=== PATIENT | female | born 1985 | race African-American/Black ===

== ENCOUNTER 2017-05-03 11:28 | Observation (INO) | payer SELFPAY ==
[2017-05-03] MEDS: IV RINGERS,LACTATED 1000ML 1,000 ML IV ×4 (00:30→19:20)
[2017-05-03] MEDS ORDERED: IV RINGERS,LACTATED 1000ML 1,000 ML IV ×2 (12:29→13:45)
[2017-05-03 12:47] LABS: BILIRUBIN,URINE SMALL (NEG); COLOR,URINE AMBER; GLUCOSE,URINE NEGATIVE (NEG); NITRITE,URINE POSITIVE (NEG); PROTEIN,URINE 30 mg/dL (NEG-TRACE)
[2017-05-03 13:05] LABS: BACTERIA,URINE MANY /HPF (0-FEW); CLARITY,URINE HAZY; SQUAMOUS EPITHELIAL CELL,UR MANY /LPF
[2017-05-03 13:06] LABS: WBC,URINE 20-40 /HPF (0-4)
[2017-05-03] MEDS ORDERED: 0.9 % SODIUM CHLORIDE 10 ML DISP.SYRIN. IV (13:30)
[2017-05-03] MEDS ORDERED: PIPERACILLIN/TAZOBACTAM 3.375 GM in IV DEXTROSE 5% 50 ML IV (14:00)
[2017-05-03 14:08] LABS: BARBITURATES NEG (NEG); BENZODIAZEPINES NEG (NEG); CANNABINOIDS POS (NEG); COCAINE NEG (NEG); METHADONE NEG (NEG); OPIATES NEG (NEG); PHENCYCLIDINE NEG (NEG)
[2017-05-03 14:12] LABS: AMPHETAMINE/METHAMPHETAMINE NEG (NEG); ETHANOL, URINE NEG (NEG)
[2017-05-03 14:24] LABS: ADD MAN DIFF? NO
[2017-05-03 14:29] LABS: BASO % 0 % (0-3); EOS # 0.1 x10^3/uL (0.0-0.7); EOS % 2 % (0-3); HEMATOCRIT 34.3 % (36.0-47.0); HEMOGLOBIN 11.1 g/dL (12.0-15.5); LYMPH # 1.1 x10^3/uL (1.0-4.8); LYMPH % 19 % (24-48); MEAN CORPUSCULAR HEMOGLOBIN 30 pg (25-35); MEAN CORPUSCULAR HGB CONC 32 g/dL (31-37); MEAN CORPUSCULAR VOLUME 91 fL (79-100); MONO # 0.2 x10^3/uL (0.0-1.1); MONO % 4 % (0-9); NEUT # 4.4 x10^3uL (1.8-7.7); NEUT % 75 % (31-73); PLATELET COUNT 117 x10^3/uL (140-400); RED BLOOD COUNT 3.76 x10^6/uL (3.50-5.40); RED CELL DISTRIBUTION WIDTH 13.6 % (11.5-14.5); WHITE BLOOD COUNT 5.9 x10^3/uL (4.0-11.0)
[2017-05-03 14:53] LABS: ALBUMIN 2.7 g/dL (3.4-5.0); ALBUMIN/GLOBULIN RATIO 0.7 (1.0-1.7); ALK PHOS 86 U/L (46-116); ALT (SGPT) 41 U/L (14-59); ANION GAP 11 (6-14); AST (SGOT) 36 U/L (15-37); BLOOD UREA NITROGEN 8 mg/dL (7-20); BUN/CREATININE RATIO 13 (6-20); CALCIUM 8.6 mg/dL (8.5-10.1); CARBON DIOXIDE 25 mmol/L (21-32); CHLORIDE 102 mmol/L (98-107); CREATININE 0.6 mg/dL (0.6-1.0); GFR 139.3; GLUCOSE 104 mg/dL (70-99); POTASSIUM 3.6 mmol/L (3.5-5.1); SODIUM 138 mmol/L (136-145); TOTAL BILIRUBIN 0.3 mg/dL (0.2-1.0); TOTAL PROTEIN 6.6 g/dL (6.4-8.2)
[2017-05-03 15:06] LABS: THYROID STIM HORMONE (TSH) 0.823 uIU/mL (0.358-3.74)
[2017-05-03] MEDS: PIPERACILLIN/TAZO IV Push 3.375 GM VIAL. IVP ×2 (15:08→21:10)
[2017-05-03 15:35] LABS: SICKLE CELL SCREEN NEGATIVE
[2017-05-03 15:40] LABS: PLT ESTIMATE DECREASED (ADEQUATE)
[2017-05-03 15:41] LABS: ANISOCYTOSIS SLIGHT; OVALOCYTES OCC
[2017-05-04] MEDS: PIPERACILLIN/TAZO IV Push 3.375 GM VIAL. IVP ×3 (03:00→15:00)
[2017-05-04 03:12] LABS: HEMOGLOBIN A1C 4.9 % (4.8-5.6)
[2017-05-04 06:14] LABS: RPR Non Reactive (Non Reactive)
[2017-05-04 14:22] LABS: HEP B SURFACE AG Negative (Negative); HIV ANTIBODY Non Reactive (Non Reactive)
[2017-05-04 15:19] LABS: RUBELLA IGG ANTIBODY 2.69 index (Immune >0.99)
== END 2017-05-04 17:08 | disposition home or self-care (01) ==
LOC: 3 SO LND 11:28
DX: O26.892 Other specified pregnancy related conditions, second trimester (principal); K46.9 Unspecified abdominal hernia without obstruction or gangrene; N23 Unspecified renal colic; Z3A.21 21 weeks gestation of pregnancy
CPT/HCPCS: 36415; 76805; 76817; 80053; 80307; 81001; 83036; 84443; 85025; 85660; 86593; 86703; 86762; 86850; 86900; 86901; 87086; 87186; 87340; 87491; 87591; 96360; 96361; 96374; 96376; G0378; G0379; J2543; J7120

== ENCOUNTER 2017-05-30 11:08 | Observation (INO) | payer OTHER ==
[2017-05-30 13:21] LABS: ADD MAN DIFF? NO
[2017-05-30 13:23] LABS: BASO # 0.1 x10^3/uL (0.0-0.2); BASO % 1 % (0-3); EOS % 1 % (0-3); HEMATOCRIT 33.9 % (36.0-47.0); HEMOGLOBIN 11.3 g/dL (12.0-15.5); LYMPH % 12 % (24-48); MEAN CORPUSCULAR HEMOGLOBIN 30 pg (25-35); MEAN CORPUSCULAR HGB CONC 33 g/dL (31-37); MEAN CORPUSCULAR VOLUME 91 fL (79-100); MONO # 0.4 x10^3/uL (0.0-1.1); MONO % 5 % (0-9); NEUT # 6.9 x10^3uL (1.8-7.7); NEUT % 82 % (31-73); RED BLOOD COUNT 3.74 x10^6/uL (3.50-5.40); RED CELL DISTRIBUTION WIDTH 14.4 % (11.5-14.5); WHITE BLOOD COUNT 8.5 x10^3/uL (4.0-11.0)
[2017-05-30 13:24] LABS: BILIRUBIN,URINE NEGATIVE (NEG); CLARITY,URINE CLEAR; COLOR,URINE AMBER; GLUCOSE,URINE NEGATIVE (NEG); NITRITE,URINE POSITIVE (NEG); PROTEIN,URINE NEGATIVE (NEG-TRACE)
[2017-05-30 13:28] LABS: BACTERIA,URINE MANY /HPF (0-FEW); SQUAMOUS EPITHELIAL CELL,UR FEW /LPF; WBC,URINE >40 /HPF (0-4)
[2017-05-30 13:31] LABS: BARBITURATES NEG (NEG); BENZODIAZEPINES NEG (NEG); CANNABINOIDS POS (NEG); COCAINE NEG (NEG); METHADONE NEG (NEG); OPIATES NEG (NEG); PHENCYCLIDINE NEG (NEG)
[2017-05-30 13:32] LABS: AMPHETAMINE/METHAMPHETAMINE POS (NEG); ETHANOL, URINE NEG (NEG)
[2017-05-30 13:35] LABS: PLATELET COUNT 120 x10^3/uL (140-400)
[2017-05-30 14:01] LABS: ALBUMIN 2.6 g/dL (3.4-5.0); ALBUMIN/GLOBULIN RATIO 0.8 (1.0-1.7); ALK PHOS 87 U/L (46-116); ALT (SGPT) 28 U/L (14-59); ANION GAP 8 (6-14); AST (SGOT) 20 U/L (15-37); BLOOD UREA NITROGEN 6 mg/dL (7-20); BUN/CREATININE RATIO 12 (6-20); CALCIUM 8.2 mg/dL (8.5-10.1); CARBON DIOXIDE 25 mmol/L (21-32); CHLORIDE 102 mmol/L (98-107); CREATININE 0.5 mg/dL (0.6-1.0); GFR 171.9; GLUCOSE 155 mg/dL (70-99); POTASSIUM 3.7 mmol/L (3.5-5.1); SODIUM 135 mmol/L (136-145); TOTAL BILIRUBIN 0.2 mg/dL (0.2-1.0); TOTAL PROTEIN 5.9 g/dL (6.4-8.2)
[2017-05-30] MEDS: IV DEXTROSE 5%-LACT RINGERS 1,000 ML IV ×4 (14:38→14:39)
[2017-05-30] MEDS: cefTRIAXone IV Push 1 GM VIAL. IVP ×2 (14:38)
[2017-05-30] MEDS: FAMOTIDINE 20 MG/2 ML VIAL IVP ×2 (15:29)
== END 2017-05-30 15:55 | disposition home or self-care (01) ==
LOC: ER 11:08 → 3 SO LND 11:31
DX: O26.892 Other specified pregnancy related conditions, second trimester (principal); K46.9 Unspecified abdominal hernia without obstruction or gangrene; Z3A.24 24 weeks gestation of pregnancy
CPT/HCPCS: 36415; 80053; 80307; 81001; 85025; 87086; 87186; 96365; 96375; G0378; G0379; J0696; S0028

== ENCOUNTER 2017-06-04 18:10 | Observation (INO) | payer OTHER ==
[2017-06-04] MEDS ORDERED: IV RINGERS,LACTATED 1000ML 1,000 ML IV ×2 (18:38)
[2017-06-04] MEDS ORDERED: hydrOXYzine PAMOATE 25 MG CAPSULE PO ×2 (19:15)
[2017-06-04 22:17] LABS: BILIRUBIN,URINE NEGATIVE (NEG); CLARITY,URINE CLEAR; COLOR,URINE YELLOW; GLUCOSE,URINE NEGATIVE (NEG); NITRITE,URINE NEGATIVE (NEG); PROTEIN,URINE NEGATIVE (NEG-TRACE); UROBILINOGEN,URINE 0.2 mg/dL (0.2 mg/dL)
[2017-06-04 22:23] LABS: BARBITURATES NEG (NEG); BENZODIAZEPINES NEG (NEG); CANNABINOIDS POS (NEG); COCAINE NEG (NEG); METHADONE NEG (NEG); OPIATES NEG (NEG); PHENCYCLIDINE NEG (NEG)
[2017-06-04 22:24] LABS: AMPHETAMINE/METHAMPHETAMINE NEG (NEG); ETHANOL, URINE NEG (NEG)
[2017-06-04 22:27] LABS: BACTERIA,URINE MODERATE /HPF (0-FEW); SQUAMOUS EPITHELIAL CELL,UR MOD /LPF; WBC,URINE >40 /HPF (0-4)
[2017-06-04 22:28] LABS: YEAST,URINE PRESENT /HPF
== END 2017-06-04 19:13 | disposition left against medical advice (07) ==
LOC: 3 SO LND 18:10
DX: O26.892 Other specified pregnancy related conditions, second trimester (principal); R10.9 Unspecified abdominal pain; Z3A.25 25 weeks gestation of pregnancy
CPT/HCPCS: 80307; 81001; 87086; G0378; G0379

== ENCOUNTER 2017-06-13 14:00 | Observation (INO) | payer OTHER ==
[2017-06-13] MEDS: hydrOXYzine PAMOATE 25 MG CAPSULE PO ×2 (15:33)
[2017-06-13] MEDS: IV DEXTROSE 5%-LACT RINGERS 1,000 ML IV ×2 (15:34)
[2017-06-13 16:23] LABS: ADD MAN DIFF? NO
[2017-06-13 16:25] LABS: BASO % 1 % (0-3); EOS # 0.1 x10^3/uL (0.0-0.7); EOS % 2 % (0-3); HEMATOCRIT 29.8 % (36.0-47.0); HEMOGLOBIN 9.9 g/dL (12.0-15.5); LYMPH # 1.4 x10^3/uL (1.0-4.8); LYMPH % 21 % (24-48); MEAN CORPUSCULAR HEMOGLOBIN 31 pg (25-35); MEAN CORPUSCULAR HGB CONC 33 g/dL (31-37); MEAN CORPUSCULAR VOLUME 92 fL (79-100); MONO # 0.3 x10^3/uL (0.0-1.1); MONO % 5 % (0-9); NEUT # 4.8 x10^3uL (1.8-7.7); NEUT % 72 % (31-73); PLATELET COUNT 123 x10^3/uL (140-400); RED BLOOD COUNT 3.26 x10^6/uL (3.50-5.40); RED CELL DISTRIBUTION WIDTH 13.9 % (11.5-14.5); WHITE BLOOD COUNT 6.6 x10^3/uL (4.0-11.0)
[2017-06-13 16:38] LABS: ANION GAP 9 (6-14); BLOOD UREA NITROGEN 7 mg/dL (7-20); BUN/CREATININE RATIO 12 (6-20); CALCIUM 8.5 mg/dL (8.5-10.1); CARBON DIOXIDE 26 mmol/L (21-32); CHLORIDE 101 mmol/L (98-107); CREATININE 0.6 mg/dL (0.6-1.0); GFR 139.3; GLUCOSE 128 mg/dL (70-99); POTASSIUM 3.3 mmol/L (3.5-5.1); SODIUM 136 mmol/L (136-145)
[2017-06-13 16:44] LABS: ALBUMIN 2.5 g/dL (3.4-5.0); ALBUMIN/GLOBULIN RATIO 0.6 (1.0-1.7); ALK PHOS 92 U/L (46-116); ALT (SGPT) 21 U/L (14-59); AST (SGOT) 20 U/L (15-37); TOTAL BILIRUBIN 0.2 mg/dL (0.2-1.0); TOTAL PROTEIN 6.4 g/dL (6.4-8.2)
[2017-06-13 16:56] LABS: PLT ESTIMATE DECREASED (ADEQUATE)
[2017-06-13] MEDS: DOCUSATE SODIUM 283 MG/5 ML ENEMA. PR ×2 (17:08)
[2017-06-13 17:35] LABS: BILIRUBIN,URINE SMALL (NEG); GLUCOSE,URINE NEGATIVE (NEG); NITRITE,URINE NEGATIVE (NEG); PH,URINE 6.5; PROTEIN,URINE 30 mg/dL (NEG-TRACE)
[2017-06-13 17:41] LABS: CLARITY,URINE HAZY; COLOR,URINE DK YELLOW
[2017-06-13 17:46] LABS: BACTERIA,URINE MODERATE /HPF (0-FEW); RBC,URINE RARE /HPF (0-2); WBC,URINE 20-40 /HPF (0-4)
[2017-06-13 17:47] LABS: SQUAMOUS EPITHELIAL CELL,UR MANY /LPF
== END 2017-06-13 19:00 | disposition home or self-care (01) ==
LOC: 3 SO LND 14:00
DX: O26.892 Other specified pregnancy related conditions, second trimester (principal); R10.10 Upper abdominal pain, unspecified; Z3A.26 26 weeks gestation of pregnancy
CPT/HCPCS: 36415; 76705; 80053; 81001; 85025; 87086; 96360; 96361; G0378; G0379; Q0177

== ENCOUNTER → 2017-10-19 | Outpatient (CLI) | payer OTHER ==
[~2017-10-19] MED LIST: DESFLURANE > 120 MINUTES IH; DEXAMETHASONE SOD PHOS 20 MG/5 ML VIAL.; FAMOTIDINE 20 MG/2 ML VIAL; GLYCOPYRROLATE 1 MG/5 ML VIAL.; LIDOCAINE 2% PF Vial for OR 5 ML VIAL.; NEOSTIGMINE 10 MG/10 ML VIAL.; ONDANSETRON PF 4 MG/2 ML VIAL.; PROPOFOL 20 ML IV; ROCURONIUM 100 MG/10 ML VIAL.; fentaNYL PF VIAL 250 MCG/5 ML VIAL
[2017-10-19] MEDS: IOHEXOL 300 MG/ML 100ML VIAL. IV (08:45)
[2017-10-19] MEDS: IOHEXOL 240 MG/ML 50ML VIAL. PO (08:45)
== END | disposition home or self-care (01) ==
LOC: US 08:21
DX: K43.9 Ventral hernia without obstruction or gangrene (principal); K80.20 Calculus of gallbladder without cholecystitis without obstruction; M41.85 Other forms of scoliosis, thoracolumbar region; R16.0 Hepatomegaly, not elsewhere classified
CPT/HCPCS: 74177; 76700; J1100; J2001; J2405; J2704; J2710; J3010; J3490; Q9966; Q9967; S0028

== ENCOUNTER 2017-10-21 07:17 | Observation (INO) | payer OTHER ==
[~2017-10-21 07:17] MED LIST changes: -DESFLURANE > 120 MINUTES IH; -DEXAMETHASONE SOD PHOS 20 MG/5 ML VIAL.; -FAMOTIDINE 20 MG/2 ML VIAL; -GLYCOPYRROLATE 1 MG/5 ML VIAL.; +LIDOCAINE 1% PF 2 ML VIAL. ID; -LIDOCAINE 2% PF Vial for OR 5 ML VIAL.; +MORPHINE SULFATE 2 MG/ML DISP.SYRIN. IV; -NEOSTIGMINE 10 MG/10 ML VIAL.; -ONDANSETRON PF 4 MG/2 ML VIAL.; +ONDANSETRON PF 4 MG/2 ML VIAL. IV; -PROPOFOL 20 ML IV; -ROCURONIUM 100 MG/10 ML VIAL.; +fentaNYL PF VIAL 100 MCG/2 ML VIAL IV; -fentaNYL PF VIAL 250 MCG/5 ML VIAL
[2017-10-21 08:11] LABS: ADD MAN DIFF? NO
[2017-10-21 08:12] LABS: NEG OBC UR NEG; POS OBC UR POS; U PREG PATIENT NEGATIVE (NEG)
[2017-10-21] MEDS: IV RINGERS,LACTATED 1000ML 1,000 ML IV (08:13)
[2017-10-21 08:15] LABS: BASO # 0.1 x10^3/uL (0.0-0.2); BASO % 1 % (0-3); EOS # 0.2 x10^3/uL (0.0-0.7); EOS % 3 % (0-3); HEMATOCRIT 33.9 % (36.0-47.0); HEMOGLOBIN 11.1 g/dL (12.0-15.5); LYMPH # 1.6 x10^3/uL (1.0-4.8); LYMPH % 35 % (24-48); MEAN CORPUSCULAR HEMOGLOBIN 29 pg (25-35); MEAN CORPUSCULAR HGB CONC 33 g/dL (31-37); MEAN CORPUSCULAR VOLUME 90 fL (79-100); MONO # 0.3 x10^3/uL (0.0-1.1); MONO % 7 % (0-9); NEUT # 2.4 x10^3uL (1.8-7.7); NEUT % 54 % (31-73); PLATELET COUNT 189 x10^3/uL (140-400); RED BLOOD COUNT 3.78 x10^6/uL (3.50-5.40); WHITE BLOOD COUNT 4.5 x10^3/uL (4.0-11.0)
[2017-10-21 08:31] LABS: PROTHROMBIN TIME PATIENT 12.5 SEC (11.7-14.0)
[2017-10-21 08:44] LABS: ANION GAP 11 (6-14); BLOOD UREA NITROGEN 22 mg/dL (7-20); BUN/CREATININE RATIO 28 (6-20); CALCIUM 8.2 mg/dL (8.5-10.1); CARBON DIOXIDE 24 mmol/L (21-32); CHLORIDE 104 mmol/L (98-107); CREATININE 0.8 mg/dL (0.6-1.0); GLUCOSE 89 mg/dL (70-99); SODIUM 139 mmol/L (136-145)
[2017-10-21 08:53] LABS: ALBUMIN 3.3 g/dL (3.4-5.0); ALBUMIN/GLOBULIN RATIO 0.9 (1.0-1.7); ALK PHOS 83 U/L (46-116); ALT (SGPT) 25 U/L (14-59); AST (SGOT) 22 U/L (15-37); TOTAL BILIRUBIN 0.2 mg/dL (0.2-1.0); TOTAL PROTEIN 6.9 g/dL (6.4-8.2)
[2017-10-21] MEDS ORDERED: SURGICEL HEMOSTAT 4X8 EACH. (09:20)
[2017-10-21] MEDS ORDERED: LIDOCAINE 2% PF Vial for OR 5 ML VIAL. (10:00)
[2017-10-21] MEDS ORDERED: PROPOFOL 10 MG/ML (20ML) VIAL. IV (10:00)
[2017-10-21] MEDS ORDERED: GLYCOPYRROLATE 1 MG/5 ML VIAL. (10:00)
[2017-10-21] MEDS ORDERED: ROCURONIUM 100 MG/10 ML VIAL. ×2 (10:00)
[2017-10-21] MEDS ORDERED: NEOSTIGMINE 10 MG/10 ML VIAL. (10:00)
[2017-10-21] MEDS ORDERED: fentaNYL PF VIAL 250 MCG/5 ML VIAL (10:00)
[2017-10-21] MEDS ORDERED: DESFLURANE > 120 MINUTES IH (10:00)
[2017-10-21] MEDS ORDERED: FAMOTIDINE 20 MG/2 ML VIAL (10:00)
[2017-10-21] MEDS ORDERED: DEXAMETHASONE SOD PHOS 20 MG/5 ML VIAL. (10:00)
[2017-10-21] MEDS ORDERED: ONDANSETRON PF 4 MG/2 ML VIAL. (10:00)
[2017-10-21] MEDS: IOHEXOL 300 MG/ML 100ML VIAL. (10:45)
[2017-10-21 10:50] LABS: PLT ESTIMATE ADEQUATE (ADEQUATE)
[2017-10-21] MEDS: BUPIVACAINE-EPI 0.25%-1:200000 50 ML VIAL. ×2 (11:29→12:22)
[2017-10-21] MEDS ORDERED: ceFAZolin 2GM PREMIX 2 GM/50 ML BAG IV (12:00)
[2017-10-21] MEDS ORDERED: ONDANSETRON PF 4 MG/2 ML VIAL. IV (12:30)
[2017-10-21] MEDS ORDERED: ceFAZolin SODIUM 1 GM in IV DEXTROSE 5% 50 ML IV (12:30)
[2017-10-21] MEDS ORDERED: 0.9 % SODIUM CHLORIDE 10 ML DISP.SYRIN. IV (12:30)
[2017-10-21] MEDS ORDERED: KETOROLAC 30 MG/ML INJ. (12:37)
[2017-10-21] MEDS ORDERED: PROCHLORPERAZINE 10 MG/2 ML VIAL. (12:37)
[2017-10-21] MEDS ORDERED: fentaNYL PF VIAL 100 MCG/2 ML VIAL (12:49)
[2017-10-21] MEDS: PROCHLORPERAZINE 10 MG/2 ML VIAL. IV (12:55)
[2017-10-21] MEDS: KETOROLAC 30 MG/ML INJ. IV (12:55)
[2017-10-21] MEDS: fentaNYL PF VIAL 100 MCG/2 ML VIAL IV ×2 (12:56→13:58)
[2017-10-21] MEDS ORDERED: MORPHINE SULFATE/PF 30 ML IV (13:00)
[2017-10-21] MEDS: MORPHINE SULFATE/PF 30 ML IV (13:45)
[2017-10-21] MEDS: POTASSIUM CL 20MEQ-0.45% NACL 1,000 ML IV (17:42)
[2017-10-21] MEDS: ceFAZolin SODIUM IV Push 1 GM VIAL. IVP (17:43)
[2017-10-21] MEDS: KETOROLAC 15 MG/ML VIAL. IV (17:43)
[2017-10-21] MEDS: FAMOTIDINE 20 MG TABLET. PO (20:24)
[2017-10-21] MEDS: FAMOTIDINE 20 MG/2 ML VIAL IVP (20:25)
[2017-10-22] MEDS: ceFAZolin SODIUM IV Push 1 GM VIAL. IVP ×2 (01:00→08:48)
[2017-10-22] MEDS: KETOROLAC 15 MG/ML VIAL. IV ×3 (01:00→12:00)
[2017-10-22] MEDS: POTASSIUM CL 20MEQ-0.45% NACL 1,000 ML IV ×2 (04:52→10:00)
[2017-10-22 07:40] LABS: ADD MAN DIFF? NO
[2017-10-22 07:45] LABS: BASO % 1 % (0-3); EOS % 0 % (0-3); HEMOGLOBIN 10.7 g/dL (12.0-15.5); LYMPH # 1.9 x10^3/uL (1.0-4.8); LYMPH % 26 % (24-48); MEAN CORPUSCULAR HEMOGLOBIN 29 pg (25-35); MEAN CORPUSCULAR HGB CONC 32 g/dL (31-37); MEAN CORPUSCULAR VOLUME 91 fL (79-100); MONO # 0.6 x10^3/uL (0.0-1.1); MONO % 8 % (0-9); NEUT # 4.9 x10^3uL (1.8-7.7); NEUT % 66 % (31-73); PLATELET COUNT 179 x10^3/uL (140-400); RED BLOOD COUNT 3.63 x10^6/uL (3.50-5.40); RED CELL DISTRIBUTION WIDTH 17.2 % (11.5-14.5); WHITE BLOOD COUNT 7.4 x10^3/uL (4.0-11.0)
[2017-10-22 08:07] LABS: ANION GAP 5 (6-14); BLOOD UREA NITROGEN 13 mg/dL (7-20); BUN/CREATININE RATIO 19 (6-20); CALCIUM 8.1 mg/dL (8.5-10.1); CARBON DIOXIDE 27 mmol/L (21-32); CHLORIDE 104 mmol/L (98-107); CREATININE 0.7 mg/dL (0.6-1.0); GFR 116.6; GLUCOSE 99 mg/dL (70-99); POTASSIUM 4.6 mmol/L (3.5-5.1); SODIUM 136 mmol/L (136-145)
[2017-10-22 08:13] LABS: ALBUMIN/GLOBULIN RATIO 0.9 (1.0-1.7); ALK PHOS 76 U/L (46-116); ALT (SGPT) 35 U/L (14-59); AST (SGOT) 34 U/L (15-37); TOTAL BILIRUBIN 0.3 mg/dL (0.2-1.0); TOTAL PROTEIN 6.4 g/dL (6.4-8.2)
[2017-10-22] MEDS: FAMOTIDINE 20 MG TABLET. PO (08:48)
[2017-10-22] MEDS: SERTRALINE 50 MG TABLET. PO (08:48)
[2017-10-22] MEDS: FAMOTIDINE 20 MG/2 ML VIAL IVP (08:49)
== END 2017-10-22 13:15 | disposition home or self-care (01) ==
LOC: SURG 07:17 → 4 NORTH 14:20
DX: K80.10 Calculus of gallbladder with chronic cholecystitis without obstruction (principal); K43.6 Other and unspecified ventral hernia with obstruction, without gangrene; F17.210 Nicotine dependence, cigarettes, uncomplicated; F12.90 Cannabis use, unspecified, uncomplicated; E66.9 Obesity, unspecified; K59.00 Constipation, unspecified; Z96.641 Presence of right artificial hip joint; Z98.891 History of uterine scar from previous surgery
CPT/HCPCS: 36415; 74300; 80053; 81025; 85025; 85610; 88304; 96374; 96375; 96376; A7015; G0378; G0379; J0690; J0780; J1100; J1885; J2001; J2270; J2405; J2704; J2710; J3010; J3490; J7030; J7120; Q9967; S0028

== ENCOUNTER 2019-09-29 11:46 | Emergency (ER) | payer OTHER ==
[~2019-09-29] VITALS: Ht 152.4 cm; Wt 125.0 kg
[~2019-09-29 11:46] MED LIST changes: +CEPH-264 PO; -LIDOCAINE 1% PF 2 ML VIAL. ID; -MORPHINE SULFATE 2 MG/ML DISP.SYRIN. IV; -ONDANSETRON PF 4 MG/2 ML VIAL. IV; +SERT100T PO; -fentaNYL PF VIAL 100 MCG/2 ML VIAL IV
--- NOTE | 2019-09-29 13:42 | RAD ---
VENOUS LOWER EXTREMITY LEFT History: Reason: SWELLING, PAIN AND EDEMA LT CALF / Spl. Instructions: / History: Comparison: None. Discussion: Multiple longitudinal and transverse high resolution real-time images of the venous system of left lower extremity were obtained with color and Doppler sampling. Patent left common femoral, superficial femoral and popliteal veins. Left peroneal veins are noncompressible and evaluation of the calf veins are difficult due to patient body habitus. Posterior tibial vein not well seen. Impression: 1. Noncompressible left peroneal veins, concerning for thrombosis. Recommend follow-up. Electronically signed by: Olayinka Moe DO (09/29/2019 1:39 PM) [id number]
[2019-09-29] MEDS ORDERED: RIVA15TA PO (14:49)
[2019-09-29] MEDS ORDERED: RIVA20TA2 PO (14:49)
--- NOTE | 2019-09-29 14:49 | PHYS DOC ---
Past Medical History Past Medical History: Other Additional Past Medical Histor: hernia Past Surgical History: Other Additional Past Surgical Histo: right hip surgery Smoking Status: Current Every Day Smoker Alcohol Use: None Drug Use: Marijuana, Other General Adult EDM: Chief Complaint: LOWER EXTREMITY SWELLING HPI: HPI: Patient is a 34 year old female presents to the ED with a chief complaint of swelling in her left lower extremity. Patient does have history of lymphedema but states that this is worse than it had been before. Patient states that currently she does not have a PCP during the coronavirus pandemic. Patient denies chest pain, shortness of breath, cough. Review of Systems: Review of Systems: Constitutional: Denies fever or chills. [] Eyes: Denies change in visual acuity. [] HENT: Denies nasal congestion or sore throat. [] Respiratory: Denies cough or shortness of breath. [] Cardiovascular: Denies chest pain or edema. [] GI: Denies abdominal pain, nausea, vomiting Musculoskeletal: Complains of swelling in her left lower extremity. Neurologic: Denies headache, focal weakness or sensory changes. [] Heart Score: Risk Factors: Risk Factors: DM, Current or recent (<one month) smoker, HTN, HLP, family history of CAD, obesity. Risk Scores: Score 0 - 3: 2.5% MACE over next 6 weeks - Discharge Home Score 4 - 6: 20.3% MACE over next 6 weeks - Admit for Clinical Observation Score 7 - 10: 72.7% MACE over next 6 weeks - Early Invasive Strategies Allergies: Allergies: Allergies Coded Allergies Type Severity Reaction Last Updated Verified Sulfa (Sulfonamide Antibiotics) Allergy Severe 10/19/17 Yes Physical Exam: PE: Constitutional: Well developed, well nourished, no acute distress, non-toxic appearance. [] HENT: Normocephalic, atraumatic Eyes: PERRLA, EOMI Neck: Normal range of motion Cardiovascular:Heart rate regular rhythm, no murmur [] Lungs & Thorax: Bilateral breath sounds clear to auscultation [] Abdomen: Bowel sounds normal, soft, no tenderness Extremities: Severe swelling bilateral lower extremity secondary to lymphedema but greater in the left lower extremity than the right. Neurologic: Alert and oriented X 3 Current Patient Data: Vital Signs: Vital Signs Date Time Temp Pulse Resp B/P (MAP) Pulse Ox O2 Delivery O2 Flow Rate FiO2 5/30/20 11:59 98.2 102 18 139/70 (93) 98 Room Air 98.2 EKG: EKG: [] Radiology/Procedures: Radiology/Procedures: [] Impression: Ultrasound is positive for DVT in the left peroneal vein. Course & Med Decision Making: Course & Med Decision Making Ordered labs and ultrasound of the left lower extremity. Ultrasound shows DVT in the left lower extremity. Patient was treated with Xarelto. Discussed in detail signs to look for so patient can return to the ED or to seek immediate medical evaluation. Due to the coronavirus pandemic I have prescribed patient a longer duration for Xarelto until she can see her PCP. Discussed results and plan of care with patient. Patient is instructed to follow up with PCP in one to 2 days. Appropriate discharge instructions given to patient to return to the ED or to seek immediate medical evaluation. Patient is instructed to return to the ED if symptoms worsen or if any concerns. Dragon Disclaimer: Dragon Disclaimer: This electronic medical record was generated, in whole or in part, using a voice recognition dictation system. Departure Departure Impression: Primary Impression: DVT (deep venous thrombosis) Disposition: HOME, SELF-CARE Condition: GOOD Referrals: NO PCP (PCP) Patient Instructions: Deep Vein Thrombosis Additional Instructions: Please return to ED if symptoms worsen or if any concerns. Please follow up with PCP in 1-2 days. Scripts Rivaroxaban (XARELTO) 20 Mg Tablet 1 TAB PO DAILY for 30 Days, #30 TAB 0 Refills with food Prov: GOLLAPALLI,MEIR E DO 09/29/19 Rivaroxaban (XARELTO) 15 Mg Tablet 1 TAB PO BID for 21 Days, #42 TAB 0 Refills Prov: GOLLAPALLI,MEIR E DO 09/29/19 GOLLAPALLI,MEIR E DO September 29, 2019 14:49
[2019-09-29] MEDS ORDERED: RIVAROXABAN 15 MG TABLET. PO ONE (14:52)
[2019-09-29 15:29] VITALS: BP 116/57
[2019-09-29 15:33] LABS: BASO # 0.1 x10^3/uL (0.0-0.2); BASO % 1 % (0-3); EOS # 0.1 x10^3/uL (0.0-0.7); EOS % 1 % (0-3); HEMATOCRIT 39.6 % (36.0-47.0); LYMPH # 1.6 x10^3/uL (1.0-4.8); LYMPH % 33 % (24-48); MEAN CORPUSCULAR HEMOGLOBIN 31 pg (25-35); MEAN CORPUSCULAR HGB CONC 33 g/dL (31-37); MEAN CORPUSCULAR VOLUME 93 fL (79-100); MONO # 0.3 x10^3/uL (0.0-1.1); MONO % 7 % (0-9); NEUT # 2.9 x10^3/uL (1.8-7.7); NEUT % 58 % (31-73); PLATELET COUNT 174 x10^3/uL (140-400); RED BLOOD COUNT 4.28 x10^6/uL (3.50-5.40); RED CELL DISTRIBUTION WIDTH 15.3 % (11.5-14.5)
[2019-09-29 15:42] LABS: CALCIUM 8.6 mg/dL (8.5-10.1); CREATININE 0.9 mg/dL (0.6-1.0); GFR 86.2; POTASSIUM 4.2 mmol/L (3.5-5.1)
[2019-09-29 15:45] LABS: ALBUMIN 3.4 g/dL (3.4-5.0); TOTAL BILIRUBIN 0.2 mg/dL (0.2-1.0); TOTAL PROTEIN 6.7 g/dL (6.4-8.2)
[2019-09-29 15:47] LABS: PROTHROMBIN TIME PATIENT 12.6 SEC (11.7-14.0)
[2019-09-29 16:06] LABS: PLT ESTIMATE ADEQUATE (ADEQUATE)
== END 2019-09-29 15:17 | disposition home or self-care (01) ==
LOC: ER 11:46
DX: I82.452 Acute embolism and thrombosis of left peroneal vein (principal); F17.200 Nicotine dependence, unspecified, uncomplicated; Z98.890 Other specified postprocedural states; Z88.2 Allergy status to sulfonamides
CPT/HCPCS: 36415; 80053; 85025; 85610; 93971; 99284-25